=== PATIENT | female | born 1950 | race Caucasian/White ===

== ENCOUNTER 2016-10-27 22:24 | Emergency (ER) | payer MEDICARE, BC ==
[2016-10-27 23:03] VITALS: BP 167/83
--- NOTE | 2016-10-27 23:06 | EDM.PDOC ---
[id number] [id number] LT LEG MOLE REMOVED/BLEEDING Time Seen by Provider: 10/27/16 22:45 Source of Information: Reports: Patient, Family History Limitations: Reports: No limitations - History of Present Illness INITIAL COMMENTS - FREE TEXT/NARRATIVE: 65-year-old female with a recent small surgical procedure behind her left knee presents this she is concerned it might be bleeding. She was told to come in if it bleeds uncontrollably. Onset: today Left Lower Leg Pain Score (Numeric/FACES): 3 - Related Data Allergies Allergy/AdvReac Type Severity Reaction Status Date / Time No Known Allergies Allergy Verified 10/27/16 22:47 Home Meds: Home Meds Aspirin [Adult Low Dose Aspirin EC] 81 mg PO DAILY 12/04/15 [History] Lisinopril [Lisinopril] 5 mg PO DAILY 12/04/15 [History] Metoprolol Succinate [Metoprolol Succinate] 50 mg PO DAILY 12/04/15 [History] Albuterol [IMW: Albuterol HFA] 2 puff INH Q4H PRN 01/18/16 [History] Cholecalciferol (Vitamin D3) [Vitamin D] 5,000 unit PO DAILY 01/18/16 [History] Multivitamin [Multivitamins] 1 tab PO DAILY 01/18/16 [History] Betamethasone/Propylene Glyc [Betamethasone DP Aug 0.05%] 30 ml TP ASDIRECTED [History] Hydrochlorothiazide [Hydrochlorothiazide] 1 tab PO DAILY 10/27/16 [History] Past Medical History Cardiovascular History: Reports: Hypertension Respiratory History: Reports: Bronchitis, recurrent Genitourinary History: Reports: Renal calculus, Other (see below) Other Genitourinary History: 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 recent excema scalp - Infectious Disease History Infectious Disease History: Reports: Chicken pox - Past Surgical History Female Surgical History: Reports: section Social & Family History - Family History Family Medical History: Unobtainable - Tobacco Use Smoking Status *Q: Never Smoker Second Hand Smoke Exposure: No - Caffeine Use Caffeine Use: Reports: Soda - Alcohol Use Days Per Week of Alcohol Use: 1 Number of Drinks Per Day: 2 Total Drinks Per Week: 2 - Recreational Drug Use Recreational Drug Use: No Drug Use in Last 12 Months: Yes - Living Situation & Occupation Living situation: Reports: , with spouse ED ROS GENERAL - Review of Systems Review Of Systems: See Below Constitutional: Denies: fever, chills Respiratory: Denies: Shortness of Breath Cardiovascular: Denies: Chest pain GI/Abdominal: Denies: Abdominal pain Skin: Reports: other (See HPI) ED EXAM, GENERAL - Physical Exam Exam: See Below Free Text/Narrative:: Patient has a large Band-Aid covering a recent surgical procedure removing a small mole behind her right knee. There does appear to be a small amount of blood staining under the Band-Aid but nothing soaking through or oozing around the dressings. Course - Vital Signs Last Recorded V/S: Last Vital Signs Temp 97.6 F 10/27/16 23:03 Pulse 71 10/27/16 23:03 Resp 16 10/27/16 23:03 BP 167/83 H 10/27/16 23:03 Pulse Ox 94 L 10/27/16 23:03 - Re-Assessments/Exams Free Text/Narrative Re-Assessment/Exam: 10/27/16 23:03 Patient was instructed by her primary doctor who did the procedure to change the Band-Aids once daily starting tomorrow morning. I don't see any reason to change that schedule, she does not need an urgent dressing change at this time. She can return tonight if bleeding increases or starts to bleed through the bandages. Departure - Departure Time of Disposition: 23:13 Disposition: Home, Self-Care 01 Condition: good Clinical Impression: Postoperative bleeding from incision Instructions: Mole Excision, Care After Referrals: Cee Cordova NP [Primary Care Provider] - Forms: ED Department Discharge Care Plan Goals: Keep wound covered with current bandage unless bleeding soaks through bandages or seems to be worsening. Some pain is to be expected and is not as concerning as if the bleeding increases. Change bandages tomorrow as scheduled.
== END 2016-10-27 23:14 | disposition home or self-care (01) ==
LOC: JP.ED 22:24
DX: M96.830 Postprocedural hemorrhage of a musculoskeletal structure following a musculoskeletal system procedure (principal); I10 Essential (primary) hypertension; Z79.82 Long term (current) use of aspirin; Z79.899 Other long term (current) drug therapy
CPT/HCPCS: 99281; 99283

== ENCOUNTER 2016-10-31 17:45 | Emergency (ER) | payer MEDICARE, BC ==
--- NOTE | 2016-10-31 18:39 | EDM.PDOC ---
ED HPI Skin/Rash - General Chief Complaint: Wound Recheck Stated Complaint: INFECTION Time Seen by Provider: 10/31/16 17:59 Source: Reports: Patient History Limitations: Reports: No limitations - History of Present Illness INITIAL COMMENTS - FREE TEXT/NARRATIVE: History of present illness: [Patient is here for a wound check. She had a skin pain removed behind her left knee. She saw her primary that had removed it and started on Bactrim because of concerns of infection. She's been working in the yard all day and is just concerned that it is more infected and wanted someone to look at. She' s had no fevers she has other complaints.] Review of systems: As per history of present illness and below otherwise all systems reviewed and negative. Past medical history: As per history of present illness and as reviewed below otherwise noncontributory. Surgical history: As per history of present illness and as reviewed below otherwise noncontributory. Social history: No reported history of drug or alcohol abuse. Family history: As per history of present illness and as reviewed below otherwise noncontributory. Physical exam: HEENT: Atraumatic, normocephalic, Lungs: Clear to auscultation Heart: S1S2, regular Extremities: Behind her left knee in the popliteal fossa she does have area of redness from where the tag was removed. There is some erythema about the area but I think it outlines the bandage that was on there so maybe a slight allergic reaction from that. Overall does not appear to be infected. Neuro: Awake, alert, oriented. Diagnostics: [] Therapeutics: [] Impression: [Wound check followup] Plan: [Am recommending that when she showers she washes it with soap and water something she has not done yet. And then use a little antibiotic ointment on the raw part of the wound.] Definitive disposition and diagnosis as appropriate pending reevaluation and review of above. - Related Data Allergies Allergy/AdvReac Type Severity Reaction Status Date / Time No Known Allergies Allergy Verified 10/27/16 22:47 Home Meds: Ambulatory Orders Medication Instructions Recorded Confirmed Aspirin [Adult Low Dose Aspirin EC] 81 mg PO DAILY 12/04/15 10/27/16 Lisinopril [Lisinopril] 5 mg PO DAILY 12/04/15 10/27/16 Metoprolol Succinate [Metoprolol 50 mg PO DAILY 12/04/15 10/27/16 Succinate] Cholecalciferol (Vitamin D3) 5,000 unit PO DAILY 01/18/16 10/27/16 [Vitamin D] Multivitamin [Multivitamins] 1 tab PO DAILY 01/18/16 10/27/16 Betamethasone/Propylene Glyc 30 ml TP ASDIRECTED 05/28/16 10/27/16 [Betamethasone DP Aug 0.05%] Hydrochlorothiazide 1 tab PO DAILY 10/27/16 10/27/16 [Hydrochlorothiazide] Sulfamethoxazole/Trimethoprim 10/31/16 10/31/16 [Take Home: Sulfameth/Trimet 800-160MG, 2 Pack] Past Medical History HEENT History: Reports: Cataract, Impaired vision Cardiovascular History: Reports: Hypertension Respiratory History: Reports: Bronchitis, recurrent Gastrointestinal History: Reports: Colon polyp Genitourinary History: Reports: Renal calculus, Other (see below) Other 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 recent excema scalp - Infectious Disease History Infectious Disease History: Reports: Chicken pox - Past Surgical History GI Surgical History: Reports: Colonoscopy, Polypectomy Female Surgical History: Reports: section Social & Family History - Family History Family Medical History: Unobtainable - Tobacco Use Smoking Status *Q: Never Smoker Second Hand Smoke Exposure: No - Caffeine Use Caffeine Use: Reports: Soda - Alcohol Use Days Per Week of Alcohol Use: 1 Number of Drinks Per Day: 2 Total Drinks Per Week: 2 - Recreational Drug Use Recreational Drug Use: No Drug Use in Last 12 Months: Yes - Living Situation & Occupation Living situation: Reports: , with spouse ED ROS GENERAL - Review of Systems Review Of Systems: ROS reveals no pertinent complaints other than HPI. ED EXAM, SKIN/RASH Exam: See Below Course - Vital Signs Last Recorded V/S: Last Vital Signs Temp 37.0 C 10/31/16 18:05 Pulse Resp 14 10/31/16 18:05 BP Pulse Ox 97 10/31/16 18:05 Departure - Departure Time of Disposition: 18:40 Disposition: Home, Self-Care 01 Condition: good Clinical Impression: Encounter for wound re-check Forms: ED Department Discharge Additional Instructions: Continue your antibiotics and wash the wound as we discussed and follow up with your primary if you believe it is getting worse but I think it should heal up fine
== END 2016-10-31 18:59 | disposition home or self-care (01) ==
LOC: JP.ED 17:45
DX: Z48.01 Encounter for change or removal of surgical wound dressing (principal); I10 Essential (primary) hypertension; Z98.890 Other specified postprocedural states; Z79.82 Long term (current) use of aspirin; Z79.899 Other long term (current) drug therapy
CPT/HCPCS: 99281; 99282

== ENCOUNTER 2017-02-13 09:28 | Emergency (ER) | payer MEDICARE, BC ==
[2017-02-13 10:17] VITALS: BP 157/76
[2017-02-13] MEDS ORDERED: Tetracaine HCl/PF 0.5% 4 ML Bottle EYERT ONE (11:19)
--- NOTE | 2017-02-13 11:25 | EDM.PDOC ---
ED HPI GENERAL MEDICAL PROBLEM - General Chief Complaint: Eye Problems Stated Complaint: EYE SURGERY WEDNESDAY WATERING AND RED Time Seen by Provider: 02/13/17 11:06 Source of Information: Reports: Patient History Limitations: Reports: No Limitations - History of Present Illness INITIAL COMMENTS - FREE TEXT/NARRATIVE: 66 yo female presents to ER with red watering right eye. 6 days ago had cataract removed. Surgery went well she had post op check one day following surgery without no problems. Last evening walked through animal buildings at the [facility] and eye became irritated and watering. clear discharge. was able to sleep last evening when she woke this AM eye remained red with increased watering. the discharge has remained clear. no vision changes. she has been wearing her prescription glasses to be able to see with left eye and this does cause strain on right eye. She was in the sun this AM. watering has decreased. denies pain in eye but does have mild pain above eye. - Related Data Allergies Allergy/AdvReac Type Severity Reaction Status Date / Time No Known Allergies Allergy Verified 10/27/16 22:47 Home Meds: Home Meds Aspirin [Adult Low Dose Aspirin EC] 81 mg PO DAILY 12/04/15 [History] Lisinopril [Lisinopril] 5 mg PO DAILY 12/04/15 [History] Metoprolol Succinate [Metoprolol Succinate] 50 mg PO DAILY 12/04/15 [History] Cholecalciferol (Vitamin D3) [Vitamin D] 5,000 unit PO DAILY 01/18/16 [History] Multivitamin [Multivitamins] 1 tab PO DAILY 01/18/16 [History] Betamethasone/Propylene Glyc [Betamethasone DP Aug 0.05%] 30 ml TP ASDIRECTED [History] Hydrochlorothiazide [Hydrochlorothiazide] 1 tab PO DAILY 10/27/16 [History] prednisoLONE Acetate [Pred Forte 1% Ophth Susp] 02/13/17 [History] Past Medical History HEENT History: Reports: Cataract, Impaired Vision Cardiovascular History: Reports: Hypertension Respiratory History: Reports: Bronchitis, Recurrent Gastrointestinal History: Reports: Colon Polyp Genitourinary History: Reports: Renal Calculus, Other (See Below) Other 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 recent excema scalp - Infectious Disease History Infectious Disease History: Reports: Chicken Pox - Past Surgical History Female Surgical History: Reports: Section Social & Family History - Family History Family Medical History: Unobtainable - Tobacco Use Smoking Status *Q: Never Smoker Second Hand Smoke Exposure: No - Caffeine Use Caffeine Use: Reports: Soda - Alcohol Use Days Per Week of Alcohol Use: 1 Number of Drinks Per Day: 2 Total Drinks Per Week: 2 - Recreational Drug Use Recreational Drug Use: No Drug Use in Last 12 Months: Yes - Living Situation & Occupation Living situation: Reports: , with Spouse ED ROS GENERAL - Review of Systems Review Of Systems: See Below Constitutional: Denies: Fever HEENT: Reports: Eye Discharge Respiratory: Denies: Shortness of Breath, Wheezing Cardiovascular: Denies: Chest Pain ED EXAM GENERAL W FULL EYE - Physical Exam Exam: See Below Exam Limited By: No Limitations General Appearance: Alert, WD/WN, No Apparent Distress Eye Exam: Bilateral Eye: PERRL Eyelids: Right: Edema (very mild), Left: Normal Appearance Conjunctiva & Sclera: Right: Injected (sclera), Left: Normal Appearance Cornea Exam: Bilateral: Normal Appearance Extraocular Movements: Bilateral: Intact Pupils: Normal Accommodation Pupillary Reaction: Bilateral: Brisk Posterior Chamber: Bilateral: Normal Funduscopic Ears: Normal External Exam, Normal Canal Nose: Normal Inspection, Normal Mucosa Throat/Mouth: Normal Inspection, Normal Lips Head: Atraumatic, Normocephalic Neck: Normal Inspection, Supple, Non-Tender Respiratory/Chest: No Respiratory Distress Cardiovascular: Regular Rate, Rhythm Course - Vital Signs Last Recorded V/S: Last Vital Signs Temp 36.7 C 02/13/17 10:32 Pulse 72 02/13/17 10:32 Resp 15 02/13/17 10:32 BP 157/76 H 02/13/17 10:32 Pulse Ox 95 02/13/17 10:32 - Orders/Labs/Meds Meds: Medications Discontinued Medications Generic Name Dose Route Start Last Admin Trade Name Freq PRN Reason Stop Dose Admin Tetracaine HCl 2 ml 02/13/17 11:19 02/13/17 11:25 Tetracaine 0.5% Steri-Unit Nikki EYERT 02/13/17 11:20 1 drop ASDIRECTED ONE Administration - Re-Assessments/Exams Free Text/Narrative Re-Assessment/Exam: 02/13/17 20:09 post cataract surgery, Injection of right eye started yesterday with clear tearing of eye, injection remained this AM with tearing this morning that has now resolved. no pain in eye. No vision changes. She denies seeing floaters or shadows. denies pain in head. tetracaine placed in eye and pressure was attempted with pin. Unable to achieve an accurate pressure after multiple attempts. pt has appt scheduled in 2 days with eye surgeon. Will start use of steroid gtt today and also antibiotic drops through appt 02/13/17 20:18 Departure - Departure Time of Disposition: 11:57 Disposition: Home, Self-Care 01 Condition: Good Clinical Impression: Eye irritation - Discharge Information Instructions: Cataract Referrals: Cee Cordova NP [Primary Care Provider] - Forms: ED Department Discharge Additional Instructions: protect eye from sun continue use of antibiotic drops through Wednesday's appointment avoid dust or other irritation of the eye avoid extended times of bending over or bearing down
== END 2017-02-13 12:12 | disposition home or self-care (01) ==
LOC: JP.ED 09:28
DX: H57.8 Other specified disorders of eye and adnexa (principal); Z79.82 Long term (current) use of aspirin; Z79.899 Other long term (current) drug therapy
CPT/HCPCS: 99283; A9270; 99282

== ENCOUNTER 2017-04-14 16:20 | Emergency (ER) | payer MEDICARE, BC ==
[2017-04-14] MEDS ORDERED: Ketorolac 30 MG/ML SDV IVPUSH ONE (18:14)
[2017-04-14] MEDS ORDERED: Ondansetron 4 MG/2 ML SDV IVPUSH ONE (18:14)
[2017-04-14] MEDS ORDERED: Tamsulosin 0.4 MG Cap.ER PO ONE (18:15)
[2017-04-14] MEDS ORDERED: Sodium Chloride 0.9% 1,000 ML IV SCH (18:15)
[2017-04-14 19:08] VITALS: BP 159/79
--- NOTE | 2017-04-14 20:03 | EDM.PDOC ---
ED HPI GENERAL MEDICAL PROBLEM - General Chief Complaint: Abdominal Pain Stated Complaint: RT SIDE ABD AND BACK PAIN Time Seen by Provider: 04/14/17 18:06 Source of Information: Reports: Patient History Limitations: Reports: No Limitations - History of Present Illness INITIAL COMMENTS - FREE TEXT/NARRATIVE: History of present illness: [Patient has a history of kidney stones and presents with right flank pain radiating into her perineal area. It has been going on for 3-4 days. He's had no fevers or chills she has had to have lithotripsy in the past she's probably had about 10 or 12 bouts of kidney stones in her life] Review of systems: As per history of present illness and below otherwise all systems reviewed and negative. Past medical history: As per history of present illness and as reviewed below otherwise noncontributory. Surgical history: As per history of present illness and as reviewed below otherwise noncontributory. Social history: No reported history of drug or alcohol abuse. Family history: As per history of present illness and as reviewed below otherwise noncontributory. Physical exam: HEENT: Atraumatic, normocephalic, Lungs: Clear to auscultation, breath sounds equal bilaterally, chest nontender. Heart: S1S2, regular, negative for clicks, rubs, or JVD. Abdomen: Soft, nondistended, nontender. Negative for masses or hepatosplenomegaly. She does have some right costovertebral tenderness to percussion Extremities: Atraumatic, negative for cords or calf pain. Neurovascular unremarkable. Neuro: Awake, alert, oriented. Exam nonfocal. Diagnostics: [CT demonstrates a 4 mm obstructing calculus in the distal right ureter with severe right hydronephrosis. CBC and complete metabolic panel were also done.] Therapeutics: [She received IV fluids and IV Toradol and had good relief with this] Impression: [Urolithiasis] Plan: [I'm providing her with [place] one to 2 by mouth every 3-4 hours #18 of the 's and we'll provide her a disc of her CT and she'll call her urologist in [place] tomorrow if she is still having trouble and has not passed the stone.] Definitive disposition and diagnosis as appropriate pending reevaluation and review of above. Right Lower Back Pain Score (Numeric/FACES): 6 - Related Data Allergies Allergy/AdvReac Type Severity Reaction Status Date / Time No Known Allergies Allergy Verified 10/27/16 22:47 Home Meds: Home Meds Aspirin [Adult Low Dose Aspirin EC] 81 mg PO DAILY 12/04/15 [History] Lisinopril [Lisinopril] 5 mg PO DAILY 12/04/15 [History] Metoprolol Succinate [Metoprolol Succinate] 50 mg PO DAILY 12/04/15 [History] Cholecalciferol (Vitamin D3) [Vitamin D] 5,000 unit PO DAILY 01/18/16 [History] Multivitamin [Multivitamins] 1 tab PO DAILY 01/18/16 [History] Betamethasone/Propylene Glyc [Betamethasone DP Aug 0.05%] 30 ml TP ASDIRECTED [History] Hydrochlorothiazide [Hydrochlorothiazide] 1 tab PO DAILY 10/27/16 [History] prednisoLONE Acetate [Pred Forte 1% Ophth Susp] 2 drop EYELF DAILY 02/13/17 [ History] Past Medical History HEENT History: Reports: Cataract, Impaired Vision Cardiovascular History: Reports: Hypertension Respiratory History: Reports: Bronchitis, Recurrent Gastrointestinal History: Reports: Colon Polyp Genitourinary History: Reports: Renal Calculus, Other (See Below) 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 recent excema scalp - Infectious Disease History Infectious Disease History: Reports: Chicken Pox - Past Surgical History HEENT Surgical History: Reports: Cataract Surgery Female Surgical History: Reports: Section, Kidney stone extraction, Lithotripsy/ESWL Social & Family History - Family History Family Medical History: Unobtainable - Tobacco Use Smoking Status *Q: Never Smoker Second Hand Smoke Exposure: No - Caffeine Use Caffeine Use: Reports: None - Alcohol Use Days Per Week of Alcohol Use: 1 Number of Drinks Per Day: 2 Total Drinks Per Week: 2 - Recreational Drug Use Recreational Drug Use: No Drug Use in Last 12 Months: Yes - Living Situation & Occupation Living situation: Reports: , with Spouse ED ROS GENERAL - Review of Systems Review Of Systems: ROS reveals no pertinent complaints other than HPI. ED EXAM, GENERAL - Physical Exam Exam: See Below Course - Vital Signs Last Recorded V/S: Last Vital Signs Temp 37.4 C 04/14/17 19:07 Pulse 68 04/14/17 19:07 Resp 17 04/14/17 19:07 BP 159/79 H 04/14/17 19:07 Pulse Ox 97 04/14/17 19:07 - Orders/Labs/Meds Orders: Active Orders 24 hr Category Date Time Status Abdomen Pelvis wo Cont [CT] Stat Exams 04/14/17 18:12 Taken Sodium Chloride 0.9% [Normal Saline] 1,000 ml Med 04/14/17 18:15 Active IV ASDIRECTED Medication Orders Sodium Chloride (Normal Saline) 1,000 mls @ 500 mls/hr IV ASDIRECTED URIEL Last Admin: 04/14/17 18:54 Dose: 500 mls/hr Labs: Laboratory Tests 04/14/17 04/14/17 04/14/17 Range/Units 17:50 18:23 18:23 WBC 8.6 (4.5-11.0) K/uL RBC 5.20 (3.30-5.50) M/uL Hgb 15.6 H (12.0-15.0) g/dL Hct 47.3 (36.0-48.0) % MCV 91 (80-98) fL MCH 30 (27-31) pg MCHC 33 (32-36) % Plt Count 181 (150-400) K/uL Neut % (Auto) 70 H (36-66) % Lymph % (Auto) 12 L (24-44) % [place] % (Auto) 15 H (2-6) % Eos % (Auto) 1 L (2-4) % Baso % (Auto) 1 (0-1) % Sodium 142 (140-148) mmol/L Potassium 3.8 (3.6-5.2) mmol/L Chloride 108 (100-108) mmol/L Carbon Dioxide 26 (21-32) mmol/L Anion Gap 8.3 (5.0-14.0) mmol/L BUN 17 (7-18) mg/dL Creatinine 1.2 H (0.6-1.0) mg/dL Est Cr Clr Drug Dosing 39.82 mL/min Estimated GFR (MDRD) 45 L (>60) Glucose 102 (74-106) mg/dL Calcium 9.3 (8.5-10.1) mg/dL Total Bilirubin 0.7 (0.2-1.0) mg/dL AST 33 (15-37) U/L ALT 48 (12-78) U/L Alkaline Phosphatase 54 (46-116) U/L Total Protein 7.8 (6.4-8.2) g/dL Albumin 4.0 (3.4-5.0) g/dL Globulin 3.8 H (2.3-3.5) g/dL Albumin/Globulin Ratio 1.1 L (1.2-2.2) Urine Color Yellow Urine Appearance Clear Urine pH 5.0 (4.5-8.0) Ur Specific [place] 1.030 (1.008-1.030) Urine Protein Negative (NEGATIVE) mg/dL Urine Glucose (UA) Normal (NEGATIVE) mg/dL Urine Ketones Negative (NEGATIVE) mg/dL Urine Occult Blood Large (NEGATIVE) Urine Nitrite Negative (NEGATIVE) Urine Bilirubin Negative (NEGATIVE) Urine Urobilinogen Normal (NORMAL) mg/dL Ur Leukocyte Esterase Negative (NEGATIVE) Urine RBC 5-10 H (0-5) Urine WBC 0-5 (0-5) Ur Epithelial Cells Rare Amorphous Sediment Not seen Urine Bacteria Not seen Urine Mucus Not seen Urine Other Meds: Medications Generic Name Dose Route Start Last Admin Trade Name Freq PRN Reason Stop Dose Admin Sodium Chloride 1,000 mls @ 500 mls/hr 04/14/17 18:15 04/14/17 18:54 Normal Saline IV 500 mls/hr ASDIRECTED URIEL Administration Discontinued Medications Generic Name Dose Route Start Last Admin Trade Name [place] PRN Reason Stop Dose Admin Ketorolac Tromethamine 30 mg 04/14/17 18:14 04/14/17 18:55 Toradol IVPUSH 04/14/17 18:15 30 mg ONETIME ONE Administration Ondansetron HCl 4 mg 04/14/17 18:14 04/14/17 18:55 Zofran IVPUSH 04/14/17 18:15 4 mg ONETIME ONE Administration Tamsulosin HCl 0.4 mg 04/14/17 18:15 04/14/17 18:55 Flomax PO 04/14/17 18:16 0.4 mg ONETIME ONE Administration Departure - Departure Time of Disposition: 20:02 Disposition: Home, Self-Care 01 Condition: Good Clinical Impression: Urolithiasis Qualifiers: Urinary calculus location: ureter Qualified Code(s): N20.1 - Calculus of ureter - Discharge Information Referrals: Cee Cordova NP [Primary Care Provider] - Additional Instructions: Please call your urologist tomorrow if you had not passed her stone by tomorrow morning. - My Orders Last 24 Hours: My Active Orders 04/14/17 18:12 Abdomen Pelvis wo Cont [CT] Stat 04/14/17 18:15 Sodium Chloride 0.9% [Normal Saline] 1,000 ml IV ASDIRECTED - Assessment/Plan Last 24 Hours: My Active Orders 04/14/17 18:12 Abdomen Pelvis wo Cont [CT] Stat 04/14/17 18:15 Sodium Chloride 0.9% [Normal Saline] 1,000 ml IV ASDIRECTED
== END 2017-04-14 20:19 | disposition home or self-care (01) ==
LOC: JP.ED 16:20
DX: N13.2 Hydronephrosis with renal and ureteral calculous obstruction (principal); H54.7 Unspecified visual loss; I10 Essential (primary) hypertension; Z79.82 Long term (current) use of aspirin; Z79.899 Other long term (current) drug therapy
CPT/HCPCS: 36415; 74176; 80053; 81001; 85025; 96361; 96374; 96375; 99284; A9270; J1885; J2405; J7040; 99283

== ENCOUNTER 2017-04-20 03:44 | Emergency (ER) | payer MEDICARE, BC ==
[2017-04-20 04:25] VITALS: BP 149/85
[2017-04-20] MEDS ORDERED: Proparacaine 0.5% Ophth Soln 15 ML Bottle EYELF ONE (04:32)
[2017-04-20] MEDS ORDERED: Proparacaine 0.5% Ophth Soln 15 ML Bottle ONE (04:34)
[2017-04-20] MEDS ORDERED: prednisoLONE Acetate 1% Ophth Susp 10 ML Bottle EYELF ONE (04:45)
--- NOTE | 2017-04-20 04:55 | EDM.PDOC ---
ED HPI GENERAL MEDICAL PROBLEM - General Chief Complaint: Eye Problems Stated Complaint: LEFT EYE PAIN Time Seen by Provider: 04/20/17 04:10 Source of Information: Reports: Patient, Family History Limitations: Reports: No Limitations - History of Present Illness INITIAL COMMENTS - FREE TEXT/NARRATIVE: 66-year-old female who had cataract surgery in January on both eyes, has had recurring iritis since surgery. Last night she was playing cards and developed redness in her left eye and overnight the pain worsened. She has prednisolone drops that she uses but she is out. No visual disturbance but she is photophobic. Onset: Gradual (Over the past 12 hours) Location: Reports: Other (Left eye) Severity: Moderate Left Eye Pain Score (Numeric/FACES): 10 - Related Data Allergies Allergy/AdvReac Type Severity Reaction Status Date / Time No Known Allergies Allergy Verified 04/20/17 04:08 Home Meds: Home Meds Aspirin [Adult Low Dose Aspirin EC] 81 mg PO DAILY 12/04/15 [History] Lisinopril [Lisinopril] 5 mg PO DAILY 12/04/15 [History] Metoprolol Succinate [Metoprolol Succinate] 50 mg PO DAILY 12/04/15 [History] Cholecalciferol (Vitamin D3) [Vitamin D] 5,000 unit PO DAILY 01/18/16 [History] Multivitamin [Multivitamins] 1 tab PO DAILY 01/18/16 [History] Betamethasone/Propylene Glyc [Betamethasone DP Aug 0.05%] 30 ml TP ASDIRECTED [History] Hydrochlorothiazide [Hydrochlorothiazide] 1 tab PO DAILY 10/27/16 [History] prednisoLONE Acetate [Pred Forte 1% Ophth Susp] 2 drop EYELF DAILY 02/13/17 [ History] Past Medical History HEENT History: Reports: Cataract, Impaired Vision Cardiovascular History: Reports: Hypertension Respiratory History: Reports: Bronchitis, Recurrent Gastrointestinal History: Reports: Colon Polyp Genitourinary History: Reports: Renal Calculus, Other (See Below) Other Genitourinary History: kidney stone 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 recent excema scalp - Infectious Disease History Infectious Disease History: Reports: Chicken Pox - Past Surgical History HEENT Surgical History: Reports: Cataract Surgery Female Surgical History: Reports: Section, Kidney stone extraction, Lithotripsy/ESWL Social & Family History - Family History Family Medical History: Unobtainable - Tobacco Use Smoking Status *Q: Never Smoker Second Hand Smoke Exposure: Yes - Caffeine Use Caffeine Use: Reports: Soda - Alcohol Use Days Per Week of Alcohol Use: 1 Number of Drinks Per Day: 2 Total Drinks Per Week: 2 - Recreational Drug Use Recreational Drug Use: No Drug Use in Last 12 Months: Yes - Living Situation & Occupation Living situation: Reports: , with Spouse ED ROS GENERAL - Review of Systems Review Of Systems: See Below Constitutional: Denies: Fever, Chills Respiratory: Denies: Shortness of Breath Cardiovascular: Denies: Chest Pain GI/Abdominal: Denies: Nausea, Vomiting : Reports: Other (She is currently struggling with right flank pain from an unpassed ureteral stone) Skin: Reports: No Symptoms ED EXAM GENERAL W FULL EYE - Physical Exam Exam: See Below Exam Limited By: No Limitations General Appearance: Alert, Mild Distress (Looks uncomfortable) Eye Exam: Right Eye: Conjunctival Injection (Marked conjunctival and scleral injection), Bilateral Eye: PERRL IOP (L) in mmH IOP Measure with (Equipment): Tonopen Eyelids: Left: Erythema Conjunctiva & Sclera: Left: Injected Extraocular Movements: Bilateral: Intact Pupillary Size: Bilateral: 4 mm Respiratory/Chest: No Respiratory Distress Neurological: Alert, Oriented Course - Vital Signs Last Recorded V/S: Last Vital Signs Temp 97.1 F 04/20/17 04:00 Pulse 80 04/20/17 04:00 Resp 18 04/20/17 04:00 BP 149/85 H 04/20/17 04:00 Pulse Ox 92 L 04/20/17 04:00 - Orders/Labs/Meds Meds: Medications Discontinued Medications Generic Name Dose Route Start Last Admin Trade Name Freq PRN Reason Stop Dose Admin Prednisolone Acetate 1 ml 04/20/17 04:45 04/20/17 05:10 Pred Forte 1% Ophth Susp EYELF 04/20/17 04:46 1 drop ONETIME ONE Administration Proparacaine HCl 1 ml 04/20/17 04:32 Proparacaine 0.5% Ophth Soln EYELF 04/20/17 04:33 ONETIME ONE Proparacaine HCl Confirm 04/20/17 04:34 Proparacaine 0.5% Ophth Soln Administered 04/20/17 04:35 Dose 15 ml .ROUTE .STK-MED ONE - Re-Assessments/Exams Free Text/Narrative Re-Assessment/Exam: 04/20/17 04:53 After proparacaine anesthesia the patient did not have significant improvement. IOP measure with Mark-Pen was 14. Patient likely is a recurring iritis. She was given prednisolone drops and apply 2 drops to her left eye, she has Vicodin at home. She will take 1 Vicodin when she gets home and see the eye doctor in 3-4 hours when they open. Departure - Departure Time of Disposition: 05:17 Disposition: Home, Self-Care 01 Condition: Good Clinical Impression: Iritis - Discharge Information Instructions: Uveitis, [id number] Referrals: Cee Cordova NP [Primary Care Provider] - Forms: ED Department Discharge Care Plan Goals: Take any Narco for pain when you get home, cool compresses to the eye may help and recheck with the manager brand tomorrow if possible.
== END 2017-04-20 05:17 | disposition home or self-care (01) ==
LOC: JP.ED 03:44
DX: H20.9 Unspecified iridocyclitis (principal); I10 Essential (primary) hypertension; Z79.82 Long term (current) use of aspirin; Z79.899 Other long term (current) drug therapy
CPT/HCPCS: 99283; A9270

== ENCOUNTER 2017-11-24 19:12 | Emergency (ER) | payer MEDICARE, BC ==
[2017-11-24 21:23] VITALS: BP 140/86
--- NOTE | 2017-11-24 22:14 | EDM.PDOC ---
ED HPI GENERAL MEDICAL PROBLEM - General Chief Complaint: Lower Extremity Injury/Pain Stated Complaint: RT FOOT PAIN Time Seen by Provider: 11/24/17 21:09 Source of Information: Reports: Patient History Limitations: Reports: No Limitations - History of Present Illness INITIAL COMMENTS - FREE TEXT/NARRATIVE: worried about blood pressure -has not been taking her medications for the past week. Lower leg edema -has troubles with her Kidneys, history of recurrent kidney stones. has been forgetting to take her medications. last dose of medications was last week. 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 right foot and 2nd toe redness and pain -She reports last night was doing something on the floor, when she got up, her toe "snagged", has been red and painful. rates pain at 10 Onset: Gradual Duration: Week(s): Location: Reports: Lower Extremity, Left, Lower Extremity, Right Quality: Reports: Other (rt toe and foot throbbing pain, rates 7/10) Severity: Moderate Improves with: Reports: Rest Worsens with: Reports: Movement Right Foot Pain Score (Numeric/FACES): 5 - Related Data Allergies Allergy/AdvReac Type Severity Reaction Status Date / Time No Known Allergies Allergy Verified 04/20/17 04:08 Home Meds: Home Meds Aspirin [Adult Low Dose Aspirin EC] 81 mg PO DAILY 12/04/15 [History] Lisinopril 5 mg PO DAILY 12/04/15 [History] Metoprolol Succinate 50 mg PO DAILY 12/04/15 [History] Cholecalciferol (Vitamin D3) [Vitamin D] 5,000 unit PO DAILY 01/18/16 [History] Multivitamin [Multivitamins] 1 tab PO DAILY 01/18/16 [History] Betamethasone/Propylene Glyc [Betamethasone DP Aug 0.05%] 30 ml TP ASDIRECTED [History] prednisoLONE Acetate [Pred Forte 1% Ophth Susp] 2 drop EYELF DAILY 02/13/17 [ History] Chlorthalidone 25 mg PO DAILY 11/24/17 [History] Tamsulosin HCl 0.4 mg PO DAILY 11/24/17 [History] Past Medical History HEENT History: Reports: Cataract, Impaired Vision Cardiovascular History: Reports: Hypertension Respiratory History: Reports: Bronchitis, Recurrent Gastrointestinal History: Reports: Colon Polyp Genitourinary History: Reports: Renal Calculus, Other (See Below) Other Genitourinary History: kidney stone 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 recent excema scalp - Infectious Disease History Infectious Disease History: Reports: Chicken Pox - Past Surgical History HEENT Surgical History: Reports: Cataract Surgery Female Surgical History: Reports: Section, Kidney stone extraction, Lithotripsy/ESWL Social & Family History - Family History Family Medical History: Unobtainable - Tobacco Use Smoking Status *Q: Unknown Ever Smoked Second Hand Smoke Exposure: No - Caffeine Use Caffeine Use: Reports: Coffee - Alcohol Use Days Per Week of Alcohol Use: 1 Number of Drinks Per Day: 2 Total Drinks Per Week: 2 - Recreational Drug Use Recreational Drug Use: No Drug Use in Last 12 Months: Yes - Living Situation & Occupation Living situation: Reports: , with Spouse Review of Systems - Review of Systems Review Of Systems: See Below Constitutional: Reports: Other (foot pain) Eyes: Reports: No Symptoms Ears: Reports: No Symptoms Nose: Reports: No Symptoms Mouth/Throat: Reports: No Symptoms Respiratory: Reports: No Symptoms Cardiovascular: Reports: No Symptoms GI/Abdominal: Reports: No Symptoms Genitourinary: Reports: No Symptoms Musculoskeletal: Reports: No Symptoms, Foot Pain, Muscle Pain, Muscle Stiffness Skin: Reports: Change in Color (rt 2nd toe), Other (bandage left forehead from skin procedure 11/23/17) Neurological: Reports: No Symptoms Psychiatric: Reports: No Symptoms ED EXAM, GENERAL - Physical Exam Exam: See Below Exam Limited By: No Limitations General Appearance: Alert Ears: Normal External Exam Nose: Normal Inspection Throat/Mouth: Normal Inspection Head: Atraumatic, Normocephalic Neck: Normal Inspection, Supple, Non-Tender, Full Range of Motion Respiratory/Chest: No Respiratory Distress, Lungs Clear, Normal Breath Sounds, No Accessory Muscle Use, Chest Non-Tender Cardiovascular: Regular Rate, Rhythm, No Murmur GI/Abdominal: Normal Bowel Sounds, Soft, Non-Tender Back Exam: Normal Inspection Extremities: Pedal Edema (2+pitting edema bilateral lower legs.), Increased Warmth (rt distal foot and rt 2nd toe), Redness (rt 2nd toe), Other Neurological: Alert, Oriented, No Motor/Sensory Deficits Psychiatric: Normal Affect, Normal Mood Skin Exam: Warm, Dry, Intact, Normal Color, No Rash Lymphatic: No Adenopathy Course - Vital Signs Last Recorded V/S: Last Vital Signs Temp 37.5 C 11/24/17 21:19 Pulse 70 11/24/17 21:19 Resp 16 11/24/17 21:19 BP 140/86 11/24/17 21:19 Pulse Ox 100 11/24/17 21:19 - Orders/Labs/Meds Orders: Active Orders 24 hr Category Date Time Status Foot Comp Min 3V Rt [CR] Stat Exams 11/24/17 21:30 Taken - Radiology Interpretation Free Text/Narrative:: xray of right foot with no acute bony injury noted. radiology report pending, reviewed with pain. Departure - Departure Time of Disposition: 22:31 Disposition: Home, Self-Care 01 Condition: Good Clinical Impression: Abscess or cellulitis of foot, Edema extremities - Discharge Information Referrals: Liyah Calle MD [Primary Care Provider] - Forms: ED Department Discharge Care Plan Goals: infection of right foot including 2nd toe -xray negative for broken bone, complete radiology report pending -start tonight; Keflex 500mg one two times a day for 7 days -elevated legs as much as possible, no prolonged walking, standing Edema of lower legs -restart "Kidney" medication as soon as possible -take medications as directed. Return to Clinic, Urgent Care or ER for any worsen of symptoms or not improved. - Problem List & Annotations (1) Abscess or cellulitis of foot SNOMED Code(s): 833814021 Code(s): L03.119 - CELLULITIS OF UNSPECIFIED PART OF LIMB; L02.619 - CUTANEOUS ABSCESS OF UNSPECIFIED FOOT Status: Acute Priority: High Current Visit: Yes (2) Edema extremities SNOMED Code(s): 477615485 Code(s): R60.0 - LOCALIZED EDEMA Status: Acute Priority: High Current Visit: Yes - Problem List Review Problem List Initiated/Reviewed/Updated: Yes - My Orders Last 24 Hours: My Active Orders 11/24/17 21:30 Foot Comp Min 3V Rt [CR] Stat - Assessment/Plan Last 24 Hours: My Active Orders 11/24/17 21:30 Foot Comp Min 3V Rt [CR] Stat Plan: infection of right foot including 2nd toe -xray negative for broken bone, complete radiology report pending -start tonight; Keflex 500mg one two times a day for 7 days -elevated legs as much as possible, no prolonged walking, standing Edema of lower legs -restart "Kidney" medication as soon as possible -take medications as directed. Return to Clinic, Urgent Care or ER for any worsen of symptoms or not improved.
--- NOTE | 2017-11-25 08:25 | CR ---
Foot Comp Min 3V Rt HISTORY: rt 2nd toe pain. FINDINGS: No acute fracture or dislocation is identified. Bony architecture and joint spaces are preserved. P lantar calcaneal spur is noted. Soft tissues are unremarkable. IMPRESSION: No acute right foot abnormality is identified.
== END 2017-11-24 22:35 | disposition home or self-care (01) ==
LOC: JP.ED 19:12
DX: L03.031 Cellulitis of right toe (principal); R60.0 Localized edema; I10 Essential (primary) hypertension; Z79.82 Long term (current) use of aspirin; Z79.899 Other long term (current) drug therapy
CPT/HCPCS: 73630-26-RT; 73630-RT; 99283; 99284

== ENCOUNTER 2018-01-26 21:37 | Emergency (ER) | payer MEDICARE, BC ==
[2018-01-26 22:29] VITALS: BP 139/82
--- NOTE | 2018-01-26 23:10 | EDM.PDOC ---
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 No history of injury No other joints involved currently. Left Feet Pain Score (Numeric/FACES): 9 - Related Data Allergies Allergy/AdvReac Type Severity Reaction Status Date / Time No Known Allergies Allergy Verified 04/20/17 04:08 Home Meds: Home Meds Aspirin [Adult Low Dose Aspirin EC] 81 mg PO DAILY 12/04/15 [History] Lisinopril 5 mg PO DAILY 12/04/15 [History] Metoprolol Succinate 50 mg PO DAILY 12/04/15 [History] Cholecalciferol (Vitamin D3) [Vitamin D] 5,000 unit PO DAILY 01/18/16 [History] Multivitamin [Multivitamins] 1 tab PO DAILY 01/18/16 [History] Betamethasone/Propylene Glyc [Betamethasone DP Aug 0.05%] 30 ml TP ASDIRECTED [History] prednisoLONE Acetate [Pred Forte 1% Ophth Susp] 2 drop EYELF DAILY 02/13/17 [ History] Chlorthalidone 25 mg PO DAILY 11/24/17 [History] Tamsulosin HCl 0.4 mg PO DAILY 11/24/17 [History] Indomethacin [Indocin] 50 mg PO TID #25 cap 01/26/18 [Rx] Past Medical History HEENT History: Reports: Cataract, Impaired Vision Cardiovascular History: Reports: Hypertension Respiratory History: Reports: Bronchitis, Recurrent Gastrointestinal History: Reports: Colon Polyp Genitourinary History: Reports: Renal Calculus, Other (See Below) Other Genitourinary History: kidney stone removed 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 recent excema scalp - Infectious Disease History Infectious Disease History: Reports: Chicken Pox - Past Surgical History HEENT Surgical History: Reports: Cataract Surgery Female Surgical History: Reports: Section, Kidney stone extraction, Lithotripsy/ESWL Social & Family History - Family History Family Medical History: Unobtainable - Tobacco Use Smoking Status *Q: Never Smoker - Caffeine Use Caffeine Use: Reports: Soda - Recreational Drug Use Recreational Drug Use: No - Living Situation & Occupation Living situation: Reports: , with Spouse Review of Systems - Review of Systems Review Of Systems: ROS reveals no pertinent complaints other than HPI. Constitutional: Reports: No Symptoms Musculoskeletal: Reports: Joint Pain (Left big toe) Skin: Reports: Erythema (Left big toe) ED EXAM, GENERAL - Physical Exam Exam: See Below Exam Limited By: No Limitations General Appearance: Alert, No Apparent Distress, Other (Appears well, vital signs normal) Respiratory/Chest: No Respiratory Distress, No Accessory Muscle Use Cardiovascular: Normal Peripheral Pulses, Regular Rate, Rhythm Extremities: Other (Swelling tender red left MTP joint big toe, passive movement painful) Neurological: Alert, Oriented Skin Exam: Warm, Dry, Other (No lymphangitis or cellulitis) Lymphatic: No Adenopathy Course - Vital Signs Last Recorded V/S: Last Vital Signs Temp 36.8 C 01/26/18 22:32 Pulse 77 01/26/18 22:32 Resp 18 01/26/18 22:32 BP 139/82 01/26/18 22:32 Pulse Ox 97 01/26/18 22:32 - Re-Assessments/Exams Free Text/Narrative Re-Assessment/Exam: 01/26/18 23:10 67-year-old female with red swollen tender left metatarsal phalangeal joint. Differential diagnosis would include infectious arthritis, gout, other forms of arthritis and injury. Symptoms and history most consistent with she has had this previously. Although she has hypertension, she is using anti-inflammatories before without problem and quick effect. She has some indomethacin at home she can take and then a prescription will be writtenwithgout Departure - Departure Time of Disposition: 23:11 Disposition: Admitted As Inpatient 66 Condition: Good Clinical Impression: Gout involving toe of left foot Qualifiers: Gout etiology: idiopathic Chronicity: acute Qualified Code(s): M10.072 - Idiopathic gout, left ankle and foot - Discharge Information Prescriptions: Indomethacin [Indocin] 50 mg PO TID #25 cap Instructions: Gout, [id number] Referrals: Liyah Calle MD [Primary Care Provider] - Forms: ED Department Discharge Additional Instructions: See your physician/clinic if not improving within 1 week Return to emergency if fever, vomiting, or additional joints become inflamed
== END 2018-01-26 23:40 | disposition critical access hospital (66) ==
LOC: JP.ED 21:37
DX: M10.072 Idiopathic gout, left ankle and foot (principal); I10 Essential (primary) hypertension; Z79.82 Long term (current) use of aspirin; Z79.899 Other long term (current) drug therapy
CPT/HCPCS: 99284

== ENCOUNTER 2018-05-01 13:09 | Emergency (ER) | payer MEDICARE, BC ==
[2018-05-01 13:38] VITALS: BP 100/62
--- NOTE | 2018-05-01 14:00 | EDM.PDOC ---
ED HPI GENERAL MEDICAL PROBLEM - General Chief Complaint: ENT Problem Stated Complaint: EAR ISSUES Time Seen by Provider: 05/01/18 13:45 Source of Information: Reports: Patient History Limitations: Reports: No Limitations - History of Present Illness INITIAL COMMENTS - FREE TEXT/NARRATIVE: 67-year-old female woke up this morning with impaction of cerumen and decreased hearing in her right ear. She is leaving on a trip tomorrow so wanted it cleaned out. Onset: Sudden Associated Symptoms: Reports: No Other Symptoms Denies Pain Score (Numeric/FACES): 0 - Related Data Allergies Allergy/AdvReac Type Severity Reaction Status Date / Time No Known Allergies Allergy Verified 05/01/18 13:38 Home Meds: Home Meds Aspirin [Adult Low Dose Aspirin EC] 81 mg PO DAILY 12/04/15 [History] Lisinopril 5 mg PO DAILY 12/04/15 [History] Metoprolol Succinate 50 mg PO DAILY 12/04/15 [History] Multivitamin [Multivitamins] 1 tab PO DAILY 01/18/16 [History] Betamethasone/Propylene Glyc [Betamethasone DP Aug 0.05%] 30 ml TP ASDIRECTED [History] Chlorthalidone 25 mg PO DAILY 11/24/17 [History] Past Medical History HEENT History: Reports: Cataract, Impaired Vision Cardiovascular History: Reports: Hypertension Respiratory History: Reports: Bronchitis, Recurrent Gastrointestinal History: Reports: Colon Polyp Genitourinary History: Reports: Renal Calculus, Other (See Below) Other 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 recent excema scalp - Infectious Disease History Infectious Disease History: Reports: Chicken Pox - Past Surgical History HEENT Surgical History: Reports: Cataract Surgery Female Surgical History: Reports: Section, Kidney stone extraction, Lithotripsy/ESWL Social & Family History - Family History Family Medical History: Unobtainable - Tobacco Use Smoking Status *Q: Never Smoker Second Hand Smoke Exposure: No - Caffeine Use Caffeine Use: Reports: Soda - Alcohol Use Days Per Week of Alcohol Use: 0 - Recreational Drug Use Recreational Drug Use: No - Living Situation & Occupation Living situation: Reports: , with Spouse ED ROS ENT - Review of Systems Review Of Systems: See Below Constitutional: Denies: Fever HEENT: Denies: Ear Pain Respiratory: Denies: Shortness of Breath, Cough GI/Abdominal: Denies: Nausea, Vomiting Neurological: Denies: Headache ED EXAM, ENT - Physical Exam Exam: See Below Exam Limited By: No Limitations General Appearance: Alert, No Apparent Distress Ears: TM Obscured by Cerumen (Right ear canal is impacted with cerumen, the left tympanic membrane appears normal) Mouth/Throat: Normal Inspection Respiratory/Chest: No Respiratory Distress Course - Vital Signs Last Recorded V/S: Last Vital Signs Temp 96.7 F 05/01/18 13:38 Pulse 71 05/01/18 13:38 Resp 16 05/01/18 13:38 BP 100/62 05/01/18 13:38 Pulse Ox 97 05/01/18 13:38 - Re-Assessments/Exams Free Text/Narrative Re-Assessment/Exam: 05/01/18 14:00 The right ear was irrigated. 05/01/18 14:28 With the assistance of a curette and irrigation, most of the wax is removed and the patient's symptoms resolved. There was still some wax in the ear canal. Departure - Departure Time of Disposition: 14:43 Disposition: Home, Self-Care 01 Condition: Good Clinical Impression: Impacted cerumen, right ear - Discharge Information Instructions: Earwax Buildup, Adult Referrals: Liyah Calle MD [Primary Care Provider] - Forms: ED Department Discharge Care Plan Goals: Keep ears clean if possible, and activity as tolerated.
== END 2018-05-01 14:43 | disposition home or self-care (01) ==
LOC: JP.ED 13:09
DX: H61.21 Impacted cerumen, right ear (principal); I10 Essential (primary) hypertension; Z79.82 Long term (current) use of aspirin; Z79.899 Other long term (current) drug therapy
CPT/HCPCS: 69210; 99283-25

== ENCOUNTER 2018-08-07 01:31 | Emergency (ER) | payer MEDICARE, BC ==
[2018-08-07 01:49] VITALS: BP 136/61
[2018-08-07] MEDS ORDERED: Albuterol 0.083% 2.5 MG/3 ML Neb Soln NEB ONE (02:02)
[2018-08-07] MEDS ORDERED: predniSONE 10 MG Tab PO ONE (02:25)
--- NOTE | 2018-08-07 02:25 | EDM.PDOC ---
ED HPI GENERAL MEDICAL PROBLEM - General Chief Complaint: Respiratory Problem Stated Complaint: COLD, WHEEZING Time Seen by Provider: 08/07/18 01:50 Source of Information: Reports: Patient, Old Records, RN History Limitations: Reports: No Limitations - History of Present Illness INITIAL COMMENTS - FREE TEXT/NARRATIVE: 67 yo female presents with a cough and wheezing for the past 3 days. No fever. Cough minimally productive. Was SOB while lying tonight. No hx of CHF, but has had to be given medicine for wheezing in the past. Does not smoke. Minimal nasal discharge. Onset: Gradual Onset Date: 08/04/18 Duration: Day(s):, Getting Worse Location: Reports: Chest Quality: Reports: Other (mild tightness) Severity: Moderate Improves with: Reports: None Worsens with: Reports: Other (lying) Context: Reports: Other (PHx of wheezing, denies dx of asthma) Associated Symptoms: Reports: Cough. Denies: Fever/Chills Treatments [employer]: Reports: Other (see below) (none) lungs/ ribs Pain Score (Numeric/FACES): 5 - Related Data Allergies Allergy/AdvReac Type Severity Reaction Status Date / Time amoxicillin [From Augmentin] AdvReac Diarrhea Verified 08/07/18 01:44 clavulanic acid AdvReac Diarrhea Verified 08/07/18 01:44 [From Augmentin] Home Meds: Home Meds Aspirin [Adult Low Dose Aspirin EC] 81 mg PO DAILY 12/04/15 [History] Lisinopril 5 mg PO DAILY 12/04/15 [History] Metoprolol Succinate 50 mg PO DAILY 12/04/15 [History] Chlorthalidone 12.5 mg PO DAILY 11/24/17 [History] Allopurinol [Zyloprim] 300 mg PO DAILY 07/08/18 [History] Cholecalciferol (Vitamin D3) [Vitamin D3] 2,000 unit PO DAILY 07/08/18 [History] Hydrocortisone [Hydrocortisone 2.5% Crm] 1 applic TOP BID 07/08/18 [History] Indomethacin [Indocin] 50 mg PO TID PRN 07/08/18 [History] Ketoconazole [Ketoconazole 2%] 1 applic TOP Q3D PRN 07/08/18 [History] Mometasone Furoate [Elocon 0.1% Crm] 1 applic TOP DAILY PRN 07/08/18 [History] Albuterol [Ventolin HFA] 2 inh IH Q4HR PRN #1 inhaler 08/07/18 [Rx] predniSONE [Prednisone] 10 mg PO BID #14 tablet 08/07/18 [Rx] Past Medical History HEENT History: Reports: Cataract, Impaired Vision Cardiovascular History: Reports: Hypertension Respiratory History: Reports: Bronchitis, Recurrent Gastrointestinal History: Reports: Colon Polyp Genitourinary History: Reports: Renal Calculus, Other (See Below) Other Genitourinary History: kidney stone removed 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 recent excema scalp - Infectious Disease History Infectious Disease History: Reports: Chicken Pox - Past Surgical History HEENT Surgical History: Reports: Cataract Surgery GI Surgical History: Reports: Colonoscopy Female Surgical History: Reports: Section, Kidney stone extraction, Lithotripsy/ESWL Social & Family History - Family History Family Medical History: Unobtainable Oncologic: Reports: Colon - Tobacco Use Smoking Status *Q: Never Smoker - Caffeine Use Caffeine Use: Reports: Soda - Recreational Drug Use Recreational Drug Use: No - Living Situation & Occupation Living situation: Reports: , with Spouse ED ROS GENERAL - Review of Systems Review Of Systems: See Below Constitutional: Reports: No Symptoms HEENT: Reports: No Symptoms Respiratory: Reports: Shortness of Breath, Wheezing, Cough. Denies: Pleuritic Chest Pain, Sputum, Hemoptysis Cardiovascular: Reports: No Symptoms GI/Abdominal: Reports: No Symptoms : Reports: No Symptoms Musculoskeletal: Reports: No Symptoms Skin: Reports: No Symptoms Neurological: Reports: No Symptoms ED EXAM, GENERAL - Physical Exam Exam: See Below Exam Limited By: No Limitations General Appearance: Alert, WD/WN, No Apparent Distress, Obese Eye Exam: Bilateral Eye: Normal Inspection Ears: Normal External Exam, Normal Canal, Hearing Grossly Normal, Normal TMs Ear Exam: Bilateral Ear: Auricle Normal, Canal Normal, TM normal Nose: Normal Inspection, No Blood Throat/Mouth: Normal Inspection, Normal Lips, Normal Oropharynx, Normal Voice, No Airway Compromise Head: Atraumatic, Normocephalic Neck: Normal Inspection Respiratory/Chest: No Respiratory Distress, No Accessory Muscle Use, Wheezing Cardiovascular: Regular Rate, Rhythm, No Edema Back Exam: Normal Inspection Extremities: Normal Inspection, Normal Range of Motion, Non-Tender, No Pedal Edema Neurological: Alert, Oriented, CN II-XII Intact, Normal Cognition, No Motor/ Sensory Deficits Psychiatric: Normal Affect, Normal Mood Skin Exam: Warm, Dry, Intact, Normal Color, No Rash Course - Vital Signs Text/Narrative:: albuterol neb-improved aeration and reduced wheezing Last Recorded V/S: Last Vital Signs Temp 36.6 C 08/07/18 01:48 Pulse 80 08/07/18 01:48 Resp 20 08/07/18 01:48 BP 136/61 08/07/18 01:48 Pulse Ox 94 L 08/07/18 01:48 - Orders/Labs/Meds Orders: Active Orders 24 hr Category Date Time Status RT Aerosol Therapy [RC] ASDIRECTED Care 08/07/18 02:02 Ordered Albuterol [Proventil Neb Soln] Med 08/07/18 02:02 Once 2.5 mg NEB ONETIME ONE Departure - Departure Time of Disposition: 02:30 Disposition: Home, Self-Care 01 Condition: Fair Clinical Impression: Bronchospasm - Discharge Information *PRESCRIPTION DRUG MONITORING PROGRAM REVIEWED*: Not Applicable *COPY OF PRESCRIPTION DRUG MONITORING REPORT IN PATIENT GUILLE: Not Applicable Instructions: Bronchospasm, Adult, [id number] Referrals: Liyah Calle MD [Primary Care Provider] - Additional Instructions: Use albuterol and prednisone as directed. Recheck with your provider this next week, return if worse. - My Orders Last 24 Hours: My Active Orders 08/07/18 02:02 RT Aerosol Therapy [RC] ASDIRECTED Albuterol [Proventil Neb Soln] 2.5 mg NEB ONETIME ONE - Assessment/Plan Last 24 Hours: My Active Orders 08/07/18 02:02 RT Aerosol Therapy [RC] ASDIRECTED Albuterol [Proventil Neb Soln] 2.5 mg NEB ONETIME ONE
== END 2018-08-07 02:40 | disposition home or self-care (01) ==
LOC: JP.ED 01:31
DX: J98.01 Acute bronchospasm (principal); I10 Essential (primary) hypertension; E66.9 Obesity, unspecified; Z88.1 Allergy status to other antibiotic agents; Z88.8 Allergy status to other drugs, medicaments and biological substances; Z79.82 Long term (current) use of aspirin; Z79.899 Other long term (current) drug therapy
CPT/HCPCS: 94640; 99284; A9270